=== PATIENT | male | born 1950 | race Caucasian/White ===

== ENCOUNTER 2017-03-07 10:04 | Emergency (ER) | payer OTHER ==
--- NOTE | ~2017-03-07 | ER ---
PATIENT'S NAME: JONELLE HODGES [facility] AGE: 66 Y [address] ROOM: [place] [address] LOCATION: [facility] ADMIT DATE: 03/07/2017 ER/Outpatient Report DISCHARGE DATE: 03/07/2017 FAMILY PHYSICIAN: PHYSICIAN, NO ATTENDING PHYSICIAN: Jonh Hough CHIEF COMPLAINT: Mr. Hodges presents with jaw pain. HISTORY OF PRESENT ILLNESS: The patient has left-sided jaw pain which started 2 nights ago, but continued to get worse last night, he had trouble sleeping. He tried self medicating with some alcohol, but that did not work. [id number] anti- inflammatories have not been helping enough. He is originally from [place] and is here on work. They are not working right now as he does road striping and the inclement weather is preventing that. He does not have any other local resources at this time. He has a known history of poor dentition. He states he has had these issues in the past and some antibiotics cleared him up. He denies any fevers, chills, or difficulty swallowing, but painful chewing. No significant other swelling. PAST MEDICAL HISTORY: As documented on the record and have been reviewed by me. SOCIAL HISTORY: As documented on the record and have been reviewed by me. MEDICATIONS: As documented on the record and have been reviewed by me. ALLERGIES: DOCUMENTED ON THE RECORD AND HAVE BEEN REVIEWED BY ME. REVIEW OF SYSTEMS: All systems were reviewed and negative except as noted in the HPI. PHYSICAL EXAMINATION: VITAL SIGNS: Blood pressure 157/90, pulse is 103, respiratory rate is 16, temperature is 97.3, SpO2 is 96% on room air. Pain is 5/10. GENERAL: Age-appropriate male, sitting upright on the exam chair, drinking coffee, in no obvious pain or distress. NEURO: GCS is 15. No obvious abnormalities. HEENT: Normocephalic, atraumatic. Eyes are PERRL. Oropharynx is clear. PATIENT'S NAME: JONELLE HODGES [facility] AGE: 66 Y [address] ROOM: [place] [address] LOCATION: ED ADMIT DATE: 03/07/2017 ER/Outpatient Report DISCHARGE DATE: 03/07/2017 FAMILY PHYSICIAN: PHYSICIAN, NO ATTENDING PHYSICIAN: Jonh Hough Poor dentition. Multiple cavities, status post filling. The left posterior molar is notable for multiple fillings. No surrounding erythema. No fluctuance. No tenderness at the floor of the mouth. No cervical adenopathy appreciated. No swelling of the buccal mucosa. NECK: Supple. Trachea is midline. CHEST: Even and unlabored respirations. HEART: Regular rate and rhythm. ABDOMEN: Benign. EXTREMITIES: Grossly unremarkable. SKIN: Warm, dry, and intact to exposed areas. LABORATORY DATA AND X-RAYS: None. IMPRESSION: Tooth pain. EMERGENCY DEPARTMENT COURSE: The patient was seen and evaluated. I offered dental block, and the patient declined. We will give him a prescription for penicillin and 5 hydrocodone to take as needed for breakthrough pain. The patient was instructed not to drive, operate machinery, make decisions, or other important activities while taking hydrocodone. He should follow up with a dentist if things worsen. All questions were answered, and the patient was discharged. MD TAMIKO PORTER/gavin /[id number] d: 03/07/[id number] t: 03/24/17 0900, OUTPATIENT REPORT
== END 2017-03-07 10:28 | disposition disaster alternative care site (69) ==
LOC: GMED 10:04
DX: K08.89 Other specified disorders of teeth and supporting structures (principal); Z79.82 Long term (current) use of aspirin